=== PATIENT | male | born 1940 | race Caucasian/White ===

== ENCOUNTER 2016-10-16 15:16 | Inpatient (IN) | payer MEDICARE ==
[~2016-10-16] VITALS: Ht 172.7 cm; Wt 89.7 kg
[2016-10-16] VITALS (7 sets, daily range): BP systolic 145–179; BP diastolic 51–80; PULSE 78–83; RESP 16–20; O2SAT 95–97
[~2016-10-16 15:16] MED LIST: AMLO5TAB2 PO; ASPI81TA3 PO; CARV12.52 PO; CINN500C14 PO; LISI40TA PO; METF1000 PO; PUMP160C PO; SIMV40TA2 PO; VIT1TABL83 PO
--- NOTE | 2016-10-16 15:50 | ED.REPORT ---
HPI-General Illness Date of Service Oct 16, 2016 ED Provider: Mati Tran MD The patient is a 76 year old male with history of hyperlipidemia, hypertension, and diabetes mellitus type II, who presents to the emergency department by EMS for generalized weakness. The patient has had multiple ground level falls today. He believes he is falling because he is generally weak. His is concerned that she is not able to take care of him with all of this falling. He did not hit his head or lose consciousness. He denies shortness of breath, chest pain, palpitations, abdominal pain, nausea, vomiting, diarrhea, dysuria, hematuria, cough, fever, chills, focal weakness or numbness. Nursing Notes Stated Complaint: FALL Chief Complaint: General Complaint Nursing Notes Reviewed: Yes Allergies: Coded Allergies: No Known Allergies (Verified Allergy, Unknown, 04/01/14) Scheduled Aspirin (Aspirin) 325 Mg Tablet 650 MG PO DAILY Carvedilol (Carvedilol) 25 Mg Tablet 25 MG PO BID Cinnamon Bark (Cinnamon) 500 Mg Capsule 1,000 MG PO DAILY Fish Oil/Dha/Epa (Fish Oil 1,200 mg Fish Oil) 1 Each Capsule 1 EACH PO DAILY Hydrochlorothiazide (Hydrochlorothiazide) 25 Mg Tablet 25 MG PO QAM Lisinopril (Lisinopril) 40 Mg Tablet 60 MG PO QAM TAKE 40 MG + 20 MG = 60 MG TOTAL DAILY Metformin (Glucophage) 1,000 Mg Tablet 1,000 MG PO BIDWM Pumpkin Seed Oil/Saw [place] (Saw [place] 160 mg Softgel) 160 Mg Capsule 640 MG PO DAILY Simvastatin (Zocor) 40 Mg Tablet 40 MG PO HS Vit B Comp/C/FA/Iron/Vit E (Vitamin B Complex Tablet) 1 Each Tablet 1 EACH PO QAM General Time Seen by MD: 15:28 Chief Complaint Weakness, Other (falls) Hx Obtained From: Patient, Spouse, EMS Arrived By: Ambulance Sudden in Onset?: No Onset Occurred: More than a week ago... Symptom Duration: Since onset Severity: Current: No pain currently Severity: Maximum: No pain Recent Healthcare: No recent hospitalization Similar Sx Previous: No Past Medical History Past Medical History Hyperlipidemia Hypertension Diabetes mellitus type II Neuropathy Osteomyelitis of foot Past Surgical History S/p left toe partial amputation Tonsillectomy Family History noncontributory Smoking History Former Smoker Social History Drug Use: Denies drug use Other Social History: Good social support, , Local resident Ambulatory Status Independent Review of Systems Full Review of Systems Constitutional: Denies: Chills, Fever Respiratory: Denies: Non-productive cough, Shortness of breath Cardiovascular: Denies: Chest pain, Palpitations GI: Denies: Abdominal pain, Diarrhea, Nausea, Vomiting Male: Denies Dysuria, Denies Hematuria Neurologic: Reports: Weakness, Denies: Change LOC, Focal weakness, Numbness, Syncope Complete sys rev & neg: except as marked. Physical Exam Vital Signs Vital Signs Date Time Temp Pulse Resp B/P Pulse Ox O2 Delivery O2 Flow Rate FiO2 10/16/16 16:47 80 20 145/51 96 Room Air 10/16/16 15:31 37.2 78 19 167/53 96 Room Air Initial VS: Reviewed Extremities: Vascular intact, Neuro intact Skin: Warm, Dry, No cyanosis Psychiatric: Mood/affect normal, Behavior normal, Normal thought content General/Constitutional: Awake, Alert, No acute distress, Cooperative Head / Eyes: Atraumatic, Normocephalic, PERRL, EOMI ENT: Atraumatic, Airway patent, Mucous membranes moist No trauma to face or scalp. Neck: Atraumatic, Supple, Full range of motion, No swelling, Non-tender, No midline vertebral tend Respiratory / Chest: Atraumatic, Breath sounds NL, Breath sounds = bilat, No respiratory distress, No rales, No rhonchi, No wheezing, No stridor, No chest tenderness, No chest wall deformity Cardiovascular: Heart rate NL, Regular rhythm Heart Sounds / Murmur: Positive: Systolic murmur present.. (II/, heard best at the apex) Abdomen: Atraumatic, Soft, Non-tender, No guarding, No rebound, BS normoactive , No distention Back: No midline vertebral tend Upper Extremities Upper Extremity / MS: Atraumatic, Inspection NL, Full range of motion, No swelling, Non-tender, No erythema, No deformity, Neurologic intact, Vascular intact Lower Extremity / Pelvis / MS: Neurologic intact, Vascular intact Good DP and PT pulses. Amputation of left second toe. No evidence of cellulitis, skin is intact. There are superficial abrasions overlying his bilateral knees. Neurologic: Oriented X3, Speech NL, No motor deficits, No sensory deficits, CN II - XII intact No lateralizing neurologic deficits. No facial droop. No slurred speech. Interpretation & Diagnostics Lab Results Interpretation Result Diagram: 10/16/16 1600 10/16/16 1600 Test 10/16/16 16:00 10/16/16 16:20 White Blood Count 10.5th/mm3 (3.8-10.1) Red Blood Count 4.11mil/mm3 (4.40-5.80) Hemoglobin 13.3g/dL (13.8-17.2) Hematocrit 37.6% (41.0-50.0) Mean Corpuscular Volume 91.5fL (81-100) Mean Corpuscular Hemoglobin 32.4pg (27.0-35.0) Mean Corpuscular Hemoglobin Concent 35.4% (32.0-37.0) Red Cell Distribution Width 13.0% (12.3-15.4) Platelet Count 125bil/L (150-400) Neutrophils (%) (Auto) 80.7% (40-74) Lymphocytes (%) (Auto) 9.7% (14-46) Monocytes (%) (Auto) 9.0% (4-12) Eosinophils (%) (Auto) 0.2% (0-5) Basophils (%) (Auto) 0.1% (0-3) Sodium Level 135mEq/L (134-144) Potassium Level 5.2mEq/L (3.5-5.2) Chloride Level 99mEq/L (97-108) Carbon Dioxide Level 18mmol/L (18-29) Blood Urea Nitrogen 29mg/dL (8-27) Creatinine 1.47mg/dL (0.76-1.27) Estimat Glomerular Filtration Rate 50mL/min (>59) Glucose Level 200mg/dL (60-99) Calcium Level 10.0mg/dL (8.5-10.1) Magnesium Level 1.8mg/dL (1.6-2.6) Total Bilirubin 0.3mg/dL (0.0-1.2) Aspartate Amino Transf (AST/SGOT) 45U/L (0-50) Alanine Aminotransferase (ALT/SGPT) 23U/L (0-44) Alkaline Phosphatase 54U/L (25-160) Troponin T 0.036ug/L (0.0-0.011) Pro-B-Type Natriuretic Peptide 3382pg/mL (0-486) Total Protein 7.5g/dL (6.4-8.4) Albumin 4.1g/dL (3.4-5.0) Lipase 26U/L (13-60) Lactic Acid Level 1.7mmol/L (0.4-2.0) ECG Interpretation ECG Interpretation: Normal sinus rhythm with a rate of 80 bpm L[address] No acute ST segment changes No acute T wave abnormalities Inferior Q waves present When compared to prior EKG dated 08/20/2015 there are no significant changes Time: 15:58 Interpreted by: ED physician X-Ray Chest Interpretation Chest Xray Interpretation: IMPRESSION: No acute cardiopulmonary disease. Dictated by: Edith Davey M.D. on 10/16/2016 at 15:57 Interpretation / Wet Read by: Interpret - Radiologist CT Head Interpretation IMPRESSION: 1. No acute intracranial findings. 2. Ventriculomegaly, similar in extent to the study dated 08/20/15. Given the chronicity of this finding, this most likely represents central volume loss. However, normal pressure hydrocephalus could also be considered in the differential. 3. Extensive findings likely associated with chronic microvascular ischemic changes. Dictated by: Madyson Rodríguez M.D. on 10/16/2016 at 16:37 Study: Head CT no contrast Interpretation / Wet Read by: Interpret - Radiologist Re-Eval/Medical Decision Med Decision/Clinical Course The patient is a 76 year old male with history of hyperlipidemia, hypertension, and diabetes mellitus type II, who presents to the emergency department by EMS for generalized weakness. The patient has had multiple ground level falls today. He believes he is falling because he is generally weak. His is concerned that she is not able to take care of him with all of this falling. He did not hit his head or lose consciousness. He denies shortness of breath, chest pain, palpitations, abdominal pain, nausea, vomiting, diarrhea, dysuria, hematuria, cough, fever, chills, focal weakness or numbness. LABS: CBC borderline leukocytosis 10.5 not significantly changed from baseline, hct 37.6 stable, CMP: BUN of 29 which is up from prior of 13 2 months ago, creatinine of 1.47 which is up from 1.1 2 months ago, other than acute kidney injury CMP is unremarkable, lactic acid 1.7. Urinalysis pending. Head CT: stable ventriculomegaly most consistent with volume loss though could be related to normal pressure hydrocephalus. CXR: Obtained, reviewed and interpreted by myself shows no evidence of infiltrates, effusions or pneumothorax. Cardiac and mediastinal silhouette normal. No bony or soft tissue abnormalities. EKG obtained interpreted by myself as documented above. Patient presents with generalized weakness. I considered ACS, however has had no chest pain, EKG is not indicative of ACS, and while screening troponin is weakly positive I suspect that this may be related to the patient's underlying acute kidney injury. We will obtain serial troponins on admission. Also considered stroke, however head ct is negative, and no lateralizing neurologic symptoms. The patient is not hypovolemic, as has has no history of n/v/d, and orthostatics were negative. We do not suspect GIB in the absence of hematemesis or melana, negative history and normal hematocrit. Infection is unlikely as afebrile, nontoxic, CXR negative. Urinalysis is pending however he denies any urinary symptoms. Emergency Department the patient was treated with IV fluids and Zofran for nausea. I ordered physical therapy evaluation as well as social work consult for possible placement in a care facility as he is not safe at home at this time. Patient was discussed with admitting hospitalist and transferred for further management and workup. Source of Hx: Old records Consultation : Referral / Consult Name: Nicho Saenz DO Consulted With: Hospitalist Requested Call at: 17:11 Call Returned at: 17:19 Design Release Engineer: Will see patient, Agrees with eval, Agrees with plan, Accepts admit Counseled Regarding: Diagnosis, Lab results, Need for admission Discharge & Departure Primary Impression: Weakness Additional Impressions: Acute kidney injury Fall from ground level Elevated troponin Dehydration Disposition: ADMITTED TO HOSPITAL Discharge Condition All VS Reviewed: Yes Condition: Stable Referrals: Erin Kaye MD (PCP) Maris Attestation Portions of this note were transcribed by Kristen Cox. I, Dr. Tran personally performed the history, physical exam and medical decision-making; I reviewed and confirmed the accuracy of the information in the transcribed note. Signed by: Maris Verde, 10/16/2016 at 1730. copies to: Erin Kaye MD, Beck O MD Oct 16, 2016 15:50 Kenny,Kristen Bentley Oct 16, 2016 15:53
--- NOTE | 2016-10-16 15:59 | DRSVH ---
PROCEDURE: X-RAY CHEST ONE VIEW, PORTABLE ([id number]) INDICATIONS: cough TECHNIQUE: One view of the chest was acquired. COMPARISON: [facility], CR, XR CHEST 1VW (PORTABLE), 08/20/2015, 14:51. FINDINGS: Surgical changes and devices: None. Lungs and pleura: No pleural effusions or pneumothorax. Lungs are clear. Mediastinum: Mediastinal contours appear normal. Heart size is normal. Bones and chest wall: No suspicious bony lesions. Overlying soft tissues appear unremarkable. IMPRESSION: No acute cardiopulmonary disease. Dictated by: Edith Davey M.D. on 10/16/2016 at 15:57 Approved by: Edith Davey M.D. on 10/16/2016 at 15:58
[2016-10-16 16:09] LABS: BASOPHILS % (AUTO) 0.1 % (0-3); EOSINOPHILS % (AUTO) 0.2 % (0-5); Mean Corpuscular Hemoglobin 32.4 pg (27.0-35.0); Mean Corpuscular Volume 91.5 fL (81-100); NEUTROPHILS % (AUTO) 80.7 % (40-74); Platelet Count 125 bil/L (150-400)
[2016-10-16] MEDS ORDERED: 0.9% Sodium Chloride 1,000 ML IV ONE (16:10)
[2016-10-16 16:37] LABS: Magnesium 1.8 mg/dL (1.6-2.6)
--- NOTE | 2016-10-16 16:42 | DRSVH ---
PROCEDURE: CT BRAIN WITHOUT CONTRAST ([id number]) INDICATIONS: falls TECHNIQUE: Noncontrast 4.5 mm thick angled axial sections acquired from the foramen magnum to the vertex, with c oronal reformats. COMPARISON: [facility], CT, CT BRAIN WO CON, 08/20/2015, 15:18. FINDINGS: Image quality: Excellent. CSF spaces: Basal cisterns are patent. No extra-axial fluid collections. The ventricles markedly e nlarged, similar to the study dated 08/20/15 and are symmetric in size and shape. Brain: No intracranial bleeds or masses. There is cerebral volume loss for age, with resultant vent ricular and sulcal prominence. There are extensive periventricular and deep white matter chronic sma ll vessel ischemic changes. There is intracranial internal carotid artery atherosclerosis. Skull and face: Calvarium and visualized facial bones appear intact, without suspicious lesions. Sinuses: Visualized sinuses and mastoids are clear. IMPRESSION: 1. No acute intracranial findings. 2. Ventriculomegaly, similar in extent to the study dated 08/20/15. Given the chronicity of this findi ng, this most likely represents central volume loss. However, normal pressure hydrocephalus could als o be considered in the differential. 3. Extensive findings likely associated with chronic microvascular ischemic changes. Dictated by: Madyson Rodríguez M.D. on 10/16/2016 at 16:37 Approved by: Madyson Rodríguez M.D. on 10/16/2016 at 16:40
[2016-10-16 16:53] LABS: TROPONIN T 0.036 ug/L (0.0-0.011)
[2016-10-16] MEDS ORDERED: Alum-Mag Hydrox-Simeth 30 mL Suspension PO PRN ×2 (16:55→17:55)
[2016-10-16] MEDS ORDERED: Ondansetron 2 mg/mL 2 mL Inj IVPUSH PRN ×2 (16:55→17:55)
--- NOTE | 2016-10-16 17:22 | PCM.HPMED ---
Subjective Date of Service Oct 16, 2016 Primary Provider: Admitting Physician: Primary Care Physician: Erin Kaye MD Attending Physician: Admit Status: From the Emergency Department Chief Complaint: fall, weakness History of Present Illness: 75 yo M with hx of DM type 2, HTN, peripheral neuropathy, diabetic wound with osteomyelitis in past, who was brought in by EMS after called saying patient has fallen and is having a difficult time getting up. Pt reported some confusion since saturday with resolution thinking it was the weekday and ultimately coming in today with notable dereased alertness and weakness upon standing which led to fall. Patient has been falling since 03/2014, after his osteomyelitis/toe amputation surgery, but it was attributed to his surgery, and imbalance, however he has been falling more frequently now - similar presenting sx when admitted in 08/30 with similar falls/weakness that was attributed to his previous foot surgery. concerned regarding inability to care for him d/t his recurrent falls - denies LOC, sz sx, or head trauma. denies cp/sob/n/v/f/ diarrhea/urinary sx. no alc/illicit rx use PCP: Dr. Erin Kaye Review of Systems: complete ros unremarkable unless stated in HPI Allergies Coded Allergies: No Known Allergies (Verified Allergy, Unknown, 04/01/14) Home Medications Amlodipine (Amlodipine) 5 Mg Tablet 10 MG PO DAILY Aspirin Chew (Aspirin Chew) 81 Mg Chew 81 MG PO DAILY Carvedilol (Carvedilol) 12.5 Mg Tablet 12.5 MG PO BIDWM Cinnamon Bark (Cinnamon) 500 Mg Capsule 1,000 MG PO DAILY Lisinopril (Lisinopril) 40 Mg Tablet 40 MG PO DAILY Metformin (Glucophage) 1,000 Mg Tablet 1,000 MG PO BID Simvastatin (Zocor) 40 Mg Tablet 40 MG PO HS Vit B Comp/C/FA/Iron/Vit E (Vitamin B Complex Tablet) 1 Each Tablet 1 EACH PO DAILY Miscellaneous Medications Pumpkin Seed Oil/Saw [place] (Saw [place] 160 mg Softgel) 160 Mg Capsule 640 MG PO PMH Hyperlipidemia Hypertension Diabetes mellitus type II Neuropathy Osteomyelitis of foot Surgical History S/p left toe partial amputation Tonsillectomy Family History noncontributory Social History Hx Alcohol Use: No Hx Substance Use: No Smoking Status: Former Smoker Living Arrangement: with Family Exam Vital Signs Vital Sign - Last Date Time Temp Pulse Resp B/P Pulse Ox O2 Delivery O2 Flow Rate FiO2 10/16/16 16:47 80 20 145/51 96 Room Air 10/16/16 15:31 37.2 Exam Gen.: No acute distress, alert and oriented, pleasant HEENT: Normocephalic/atraumatic, pupils equal round react to light and accommodation,EOMI, Anicteric sclera, No mucosal ulcerations Neck: No JVD, lymphadenopathy, no thyromegaly Cardiovascular: No rubs clicks murmurs or gallops, regular rate Respiratory: Clear to auscultation bilaterally no wheezes rales or rhonchi, good historian effort GI: Soft, nontender to palpation no masses no hepatosplenomegaly noted no peritoneal signs or rebound tenderness. Extremities: No clubbing cyanosis or edema, pulses intact, noted L 2nd toe amputation, plantar ulcerations near great toes b/l, no discharge, dirty but chronic appearing -but noted abrasions on knee Neurologic, muscle strength 5 out of 5 in upper and lower extremities bilaterally, creatinine nerves II-12 grossly intact, DTRs 2+ at patellar and brachial radialis and bicipital, sensation intact Psych: Mood appropriate, affect appropriate, no tangential thought or speech Lab and Diagnostics Result Diagram: 10/16/16 1600 10/16/16 1600 X-Rays, CTs and MRIs CT head IMPRESSION: 1. No acute intracranial findings. 2. Ventriculomegaly, similar in extent to the study dated 08/20/15. Given the chronicity of this finding, this most likely represents central volume loss. However, normal pressure hydrocephalus could also be considered in the differential. 3. Extensive findings likely associated with chronic microvascular ischemic changes. CXR IMPRESSION: No acute cardiopulmonary disease. Dictated by: Edith Davey M.D. on 10/16/2016 at 15:57 12-lead ECG SR, early repol no acute ischemic changes - nl intervals Cardiac Echo Impressions Name: TRACY WILSON VStudy Date: 08/21/2015 Height: 68 in Hospital Exam Location: [facility] Weight: 199 lb Gender: Male BSA: 2.0 m2 : 1940 Age: 75 yrs BP: 168/78 mmHg Reason For Study: GENERALIZED WEAKNESS Ordering Physician: HOSPITALIST SV Performed By: Rishabh Pugh Referring Physician: Erin Kaye Interpretation Summary The left ventricle is mildly dilated. There is moderate concentric left ventricular hypertrophy. The ejection fraction is estimated to be 50-55%. There is posterolateral wall severe hypokinesis. There are no other obvious focal wall motion abnormalities. Assessment of diastolic parameters indicates a relaxation abnormality of the left ventricle, consistent with normal filling pressures. There is mild-moderate mitral regurgitation. The aortic valve is bicuspid. There is no hemodynamically significant valvular aortic stenosis. There is moderate aortic regurgitation. The ascending aorta is mildly enlarged. No other echocardiographic abnormalities seen. Assessment & Plan 75 M with hx of DM, HTN and HLP with Osteomyelitis s/p amputation of his left second toe who presents to the ER with recurrent falls and unable to care for pt at home Recurrent falls, possibly 2/2 to infection/UA pending vs L foot deformity from prior amputation sx -Unsure of what patients baseline, per he has been falling for the last couple yrs with similar admit in 08/30 -CT scan without e/o ICH -enc hydration, hold IVF given BNP -Follow up cultures, send for UA, and check Procalcitonin -order TSH -f/u UA -Get PT for evaluation -Will get ECHO for comparison given e/o WMA in 2016 Diabetic foot ulceration -wound care for conservative tx - chronic appearing but needing cleaning LIN -likely 2/2 to prerenal state, gentle IVF overnight -daily lab HTN urgency -Only takes Lisinopril -cont carvedilol -Will add Hydralazine PRN -stopped norvasc -Recheck in AM DM type 2 uncontrolled -Start Insulin SS -hypoglycemic protocol qACHS -Check A1c Pain Evaluation: Adequate Pain Control VTE Prophylaxis: Sub-Q Heparin (Unfractionated) Resuscitation Status: DNR/DNI:Do Not Resuscitate/Intubate Time spent 45 minutes spent with robert and Nicho Duran DO Oct 16, 2016 17:22
[2016-10-16] MEDS ORDERED: Polyethylene Glycol (PEG) 17 Gm Powder PO PRN (17:55)
[2016-10-16] MEDS ORDERED: Glucose 40% Oral Gel 15 Gm Tube PO PRN (18:05)
[2016-10-16] MEDS ORDERED: CARV25TA2 PO (18:16)
[2016-10-16] MEDS ORDERED: ASPI325T32 PO (18:16)
[2016-10-16] MEDS ORDERED: HYDR25TA4 PO (18:16)
[2016-10-16] MEDS ORDERED: FISH1CAP15 PO (18:16)
[2016-10-16] MEDS ORDERED: 0.9% Sodium Chloride 1,000 ML IV SCH (19:35)
[2016-10-16] MEDS: Insulin LISPRO 300 Unit/3 mL Inj SUBQ SCH (21:36)
[2016-10-17] VITALS (8 sets, daily range): BP systolic 169–185; BP diastolic 57–66; PULSE 58–72; RESP 16–20; O2SAT 96–97
[2016-10-17 01:50] LABS: APPEARANCE,URINE CLEAR (CLEAR,HAZY); COLOR,URINE STRAW (YELLOW); OCCULT BLOOD,URINE SMALL (NEGATIVE); UROBILINOGEN,URINE NORMAL (NORMAL)
--- NOTE | 2016-10-17 05:13 | NUR ---
/ HTN Pt states they have no issue with incontinence, however they have been having significant incontinence all night. Pt has been A&Ox3 and sleeping well, but needing attends changing regularly. Pt has also been hypertensive tonight, given mayito coreg and prn hydralazine w/ improvement.
[2016-10-17 06:09] LABS: BASOPHILS % (AUTO) 0.1 % (0-3); EOSINOPHILS % (AUTO) 0.9 % (0-5); MONOCYTES % (AUTO) 15.4 % (4-12); Mean Corpuscular Hemoglobin 31.8 pg (27.0-35.0); Mean Corpuscular Volume 93.2 fL (81-100); NEUTROPHILS % (AUTO) 62.7 % (40-74); Platelet Count 108 bil/L (150-400)
[2016-10-17 06:31] LABS: Magnesium 1.7 mg/dL (1.6-2.6)
[2016-10-17] MEDS ORDERED: Lisinopril 40 Tablet PO SCH (08:30)
[2016-10-17] MEDS: Insulin LISPRO 300 Unit/3 mL Inj SUBQ SCH ×4 (08:48→21:43)
[2016-10-17] MEDS: Heparin 5,000 Unit/mL Inj SUBQ SCH ×2 (08:49→16:49)
--- NOTE | 2016-10-17 09:16 | NUR ---
Case Management: BROWN and Medicare Part D info given and explained to patient at bedside at 9:05 am. No questions at this time. Signed original BROWN placed on hard chart, copy given to ptMAURO Pearce RN
[2016-10-17] MEDS ORDERED: Furosemide 10 mg/mL 10 mL Inj IVPUSH SCH (11:50)
--- NOTE | 2016-10-17 11:52 | PCM.PNMED ---
Subjective Date of Service Oct 17, 2016 Subjective No complaints overnight, awaiting echo this morning. Denies chest pain, shortness of breath or fever, consultation Dr. Bauer of podiatry today who has seen patient in the past Exam Vital Signs Vital Sign - Last Date Time Temp Pulse Resp B/P Pulse Ox O2 Delivery O2 Flow Rate FiO2 10/17/16 11:15 58 171/57 10/17/16 08:50 37.2 20 97 Room Air Intake and Output 10/16/16 10/16/16 10/17/16 Cumulative From/Thru 15:00 23:00 07:00 10/16/16 15:31 - 10/17/16 06:33 Intake Total 1000 ml 777 ml 1777 ml Output Total 300 ml 300 ml Balance 1000 ml 477 ml 1477 ml Intake IV Total 1000 ml 777 ml 1777 ml Output Urine Total 300 ml 300 ml # Voids 3 3 Exam Gen.: No acute distress, alert and oriented, pleasant HEENT: Normocephalic/atraumatic, pupils equal round react to light and accommodation,EOMI, Anicteric sclera, No mucosal ulcerations Neck: No JVD, lymphadenopathy, no thyromegaly Cardiovascular: No rubs clicks murmurs or gallops, regular rate Respiratory: Clear to auscultation bilaterally no wheezes rales or rhonchi, good historian effort GI: Soft, nontender to palpation no masses no hepatosplenomegaly noted no peritoneal signs or rebound tenderness. Extremities: No clubbing cyanosis or edema, pulses intact, noted L 2nd toe amputation, plantar ulcerations near great toes b/l, no discharge, dirty but chronic appearing -but noted abrasions on knee Neurologic, muscle strength 5 out of 5 in upper and lower extremities bilaterally, creatinine nerves II-12 grossly intact, DTRs 2+ at patellar and brachial radialis and bicipital, sensation intact Psych: Mood appropriate, affect appropriate, no tangential thought or speech IVs and Medications Medications Reviewed: Medications were reviewed in detail Lab and Diagnostics Result Diagram: 10/17/16 0550 10/17/16 0550 X-Rays, CTs and MRIs CT head IMPRESSION: 1. No acute intracranial findings. 2. Ventriculomegaly, similar in extent to the study dated 08/20/15. Given the chronicity of this finding, this most likely represents central volume loss. However, normal pressure hydrocephalus could also be considered in the differential. 3. Extensive findings likely associated with chronic microvascular ischemic changes. CXR IMPRESSION: No acute cardiopulmonary disease. Dictated by: Edith Davey M.D. on 10/16/2016 at 15:57 12-lead ECG SR, early repol no acute ischemic changes - nl intervals Cardiac Echo Impressions Name: TRACY WILSON VStudy Date: 08/21/2015 Height: 68 in Hospital Exam Location: [facility] Weight: 199 lb Gender: Male BSA: 2.0 m2 : 1940 Age: 75 yrs BP: 168/78 mmHg Reason For Study: GENERALIZED WEAKNESS Ordering Physician: HOSPITALIST [facility] Performed By: Rishabh Pugh Referring Physician: Erin Kaye Interpretation Summary The left ventricle is mildly dilated. There is moderate concentric left ventricular hypertrophy. The ejection fraction is estimated to be 50-55%. There is posterolateral wall severe hypokinesis. There are no other obvious focal wall motion abnormalities. Assessment of diastolic parameters indicates a relaxation abnormality of the left ventricle, consistent with normal filling pressures. There is mild-moderate mitral regurgitation. The aortic valve is bicuspid. There is no hemodynamically significant valvular aortic stenosis. There is moderate aortic regurgitation. The ascending aorta is mildly enlarged. No other echocardiographic abnormalities seen. Assessment & Plan 75 M with hx of DM, HTN and HLP with Osteomyelitis s/p amputation of his left second toe who presents to the ER with recurrent falls and unable to care for pt at home Recurrent falls, possibly 2/2 to possible acute CHF exacerbation, unknown systolic versus diastolic complicated by L foot deformity from prior amputation sx -CT scan without e/o ICH -Gentle IV fluid overnight without improvement in renal function, give Lasix dose IV today, check urine studies noted elevated BNP -TSH ordered -PT for evaluation today -Will get ECHO for comparison given e/o WMA in 2016, pending now -Daily weights Diabetic foot ulceration -wound care for conservative tx - chronic appearing but needing cleaning - Consult to podiatry today, Dr. BAUER to see patient 4/5 LIN -likely 2/2 to prerenal state, gentle IVF overnight, no improvement will check urine sodium and neurology including urea -daily lab HTN urgency -Only takes Lisinopril, may need to hold given acute kidney injury -cont carvedilol -add Hydralazine PRN, may need to schedule doses instead of lisinopril if acute kidney injury worsens -stopped norvasc -Recheck in AM DM type 2 uncontrolled -Start Insulin SS -hypoglycemic protocol qACHS -A1c 7.1 this admission Pain Evaluation: Adequate Pain Control VTE Prophylaxis: Sub-Q Heparin (Unfractionated) Resuscitation Status: DNR/DNI:Do Not Resuscitate/Intubate Time spent 35 minutes spent with evaluation and management Attending Statement Disposition: Likely discharge in 1-2 days pending echo, PT evaluation and improvement in kidney function Nicho Saenz DO Oct 17, 2016 11:52
--- NOTE | 2016-10-17 12:31 | NUR ---
Wound Care Wound evaluation order received, patient seen briefly at bedside. Presents with plantar ulcer which is open at right 1st met head and a severely hyperkeratotic lesion at left 1st met head. Patient has been a patient of Dr Ariane Duncan in past, contacted Dr Saenz to recommend consult with Dr Duncan. Dr Duncan to follow.
[2016-10-17] MEDS ORDERED: Furosemide 10 mg/mL 4 mL Inj IVPUSH ONE (12:48)
--- NOTE | 2016-10-17 14:24 | NUR ---
Social Work Note - Initial Assessment: D/A: See Initial Assessment. The Pt is a 76 y/o male that was admitted for weakness, LIN, GLF, and elevated troponin, Readmission Risk Score 5. The Pts PCP is MD Erin Kaye and his insurance is [employer] Medicare, no LTC or VA benefits reported. EMR reviewed, the Pt lives independently in a one story home with ramp in [place] with his . No Advanced Directive noted in EMR, Pt given copy. The Pt reports that he uses a FWW daily, continues to drive, and has an [facility] history in 2016. PT and WC evals pending. The Pt denies any needs at this time, SW to follow if needs arise. P: The Pt will likely discharge home via family POV when medically stable. PT and WC evals pending. The Pt denies any needs at this time, SW to follow if needs arise. MIHIR Shepard Director Underwriter Sales MIHIR Parekh Addendum: 10/17/16 at 1425 by ANGELINA SILVA Amended: Links added.
--- NOTE | 2016-10-17 18:22 | NUR ---
Mobility/wound care/elimination Pt able to sit up on edge of bed with 1 person max assist. Once standing, CGA with FWW for ambulation Dr. Duncan here and debrided bilat foot callous, dressing applied. left foot pressure wrapped with philip wrap d/t bleeding. To be removed at 1900 and covered with xeroform and mepitel. Left foot elevated while up in chair for meal. Pt uses urinal indep, but also incont wearing blue brief.
--- NOTE | 2016-10-17 21:27 | CONS ---
[address] [address] CONSULTATION REPORT PATIENT: TRACY WILSON V : 1940 MR#: [id number] ADMIT: 10/16/2016 JOB ID: [id number] DATE OF SERVICE: 10/17/2016 The patient is asked to be seen for thick calluses and possible wounds on both feet. The patient has history of diabetes and neuropathic ulcerations. He is status post amputation of the 2nd left toe secondary to osteomyelitis. He states that he stopped seeing a manager distribution due to the high cost of co-pays. He has been applying cream to his feet. He has been trimming his own toenails. He denies any pain or drainage from the feet. He has just gotten a new pair of diabetic shoes earlier in the year. PAST MEDICAL HISTORY: Significant for type 2 diabetes with peripheral neuropathy, hyperlipidemia, hypertension, history of osteomyelitis. He is status post left toe partial amputation and tonsillectomy. HOME MEDICATIONS: 1. Amlodipine 5 mg two tablets p.o. daily. 2. Aspirin 81 mg one tablet daily. 3. Carvedilol 12.5 mg p.o. b.i.d. 4. Cinnamon 500 mg two capsules p.o. daily. 5. Lisinopril 40 mg tablets p.o. daily. 6. Metformin 1000 mg p.o. b.i.d. 7. Zocor 40 mg p.o. h.s. 8. Vitamin B complex. 9. Saw palmetto 160 mg capsules as directed. ALLERGIES: No known drug allergies. FAMILY HISTORY: Noncontributory. SOCIAL HISTORY: No alcohol use or substance abuse. He is a former smoker. PHYSICAL EXAMINATION: The patient has thick hyperkeratosis with dried blood, plantar right hallux and plantar first metatarsophalangeal joint. There is an ulceration underneath both of the calluses. The ulceration on the right hallux measures 0.5 cm x 0.3 cm x 0.2 cm after debridement. There is no bone or tendon exposed. The granulation tissue is red and firm. There is a small amount of serous discharge. There is no pustular discharge or fluctuance noted. Ulceration, plantar first metatarsal plantar joint, measures 2 cm x 2.5 cm x 0.2 cm after debridement. The granulation tissue is red and firm. There is no bone or tendon exposed. There is odor. There is no pustular discharge or fluctuance noted. There is approximately 80% fibrin tissue in both ulcerations. The patient has decreased tone, temperature, and turgor of skin. Dorsalis pedis arteries are palpable but diminished. He has decreased digital hair growth. Hallux abductovalgus, left foot, with 3rd toe abutting the hallux. LABORATORY DATA: WBC 7.7, hemoglobin 11.7, hematocrit 34.3, platelets 108. Neutrophils 62.7. Sodium 141, potassium 4.2, chloride 102, carbon dioxide 21, BUN 28, creatinine 1.59, estimated GFR 45, glucose 157, albumin 3.7, ALT 18, AST 24. ASSESSMENT/PLAN: 1. Diabetic neuropathic ulcerations, bilateral feet, secondary to chyloma formation. It does not appear to be infected at this time. The hyperkeratosis and the nonviable and fibrotic tissue was sharply excised through skin edges through healthy subcutaneous tissue on both ulcerations. There was a minimal amount of bleeding. Hemostasis was achieved with pressure on the right and on the left with an Julián wrap. I instructed the nurse to remove the Julián wrap in half an hour and replace it with adhesive foam. The area was dressed using Xeroform, gauze, and paper tape on the right. Xeroform, 4 x 4 gauze, and an Julián wrap on the left. Recommend follow up at the [facility] once he is discharged from the hospital for continued local wound care and debridements as needed. 2. Diabetes with peripheral neuropathy. His blood sugars are in the past well controlled, however, he has severe neuropathy and it is at risk for recurrent diabetic neuropathic ulcerations. I discussed with the patient the importance of seeing a manager distribution such as myself on a regular basis to prevent reulceration as he is putting himself at risk for diabetic foot infections. I recommend he follow with a manager distribution every one month or two months depending on the rate of formation of callus buildup.
[2016-10-17 21:55] LABS: OSMOLALITY, URINE 411 mOs/kH2O (250-1200)
[2016-10-18] VITALS (9 sets, daily range): BP systolic 147–189; BP diastolic 56–67; PULSE 60–67; RESP 16–18; O2SAT 94–97
[2016-10-18] MEDS: Heparin 5,000 Unit/mL Inj SUBQ SCH ×3 (01:17→16:24)
--- NOTE | 2016-10-18 04:28 | NUR ---
HTN Pt A&O X3. denied pain or discomfort. Pt BP at bed time was 175/65. Administered PRN Q6hr PO hydralazine. BP 1hr post hydralazine is 179/66. pt denied headache, but he was diaphoretic. paged HS hospitalist. hospitalist recommended to continue to monitor. will continue to monitor.
[2016-10-18 06:20] LABS: BASOPHILS % (AUTO) 0.1 % (0-3); EOSINOPHILS % (AUTO) 2.3 % (0-5); MONOCYTES % (AUTO) 13.8 % (4-12); Mean Corpuscular Hemoglobin 31.9 pg (27.0-35.0); Mean Corpuscular Volume 92.8 fL (81-100); NEUTROPHILS % (AUTO) 56.2 % (40-74); Platelet Count 114 bil/L (150-400)
--- NOTE | 2016-10-18 08:10 | NUR ---
Case Management: IMM given and explained to patient at bedside at 0800. No questions. Original signed IMM placed on hard chart, copy given to ptMAURO Pearce RN
[2016-10-18] MEDS: Insulin LISPRO 300 Unit/3 mL Inj SUBQ SCH ×4 (08:28→21:58)
--- NOTE | 2016-10-18 11:29 | NUR ---
NITHYA NITHYA signed
--- NOTE | 2016-10-18 11:48 | DRSVH ---
[facility] [address] [facility] [place] [address] Echocardiogram Report Name: TRACY WILSON VStudy Date: 10/17/2016 Height: 68 in Hospital Exam Location: [facility] Weight: 198 lb Gender: Male BSA: 2.0 m2 : 1940 Age: 76 yrs BP: 175/66 mmHg Reason For Study: WEAKNESS, HISTORY OF WMA Ordering Physician: HOSPITALIST SURESHerformed By: Rishabh Pugh Referring Physician: Mayelin ALAS Interpretation Summary The left ventricle is borderline dilated. The ejection fraction is estimated to be 60-65%. Previously reported posterolateral hpokinesis has improved. The aortic valve is mildly calcified. A bicuspid aortic valve cannot be excluded. There is no hemodynamically significant valvular aortic stenosis. There is moderate aortic regurgitation. Procedure: A two-dimensional transthoracic echocardiogram with color flow and Doppler was performed. The study quality was technically adequate. Comparison is made with the echocardiogram of 08/21/15. The patient was in normal sinus rhythm during the exam. Left Ventricle: There is normal left ventricular wall thickness. The left ventricle is borderline dilated. The ejection fraction is estimated to be 60- 65%. Left ventricular wall motion is normal. Right Ventricle: The right ventricle is normal in size and function. Atria: The left atrium is mildly dilated. Right atrial size is normal. The interatrial septum is intact with no evidence for an atrial septal defect. Mitral Valve: The mitral valve is normal in structure and function. There is no mitral regurgitation. Aortic Valve: The aortic valve is mildly calcified. A bicuspid aortic valve cannot be excluded. There is no hemodynamically significant valvular aortic stenosis. There is moderate aortic regurgitation. Tricuspid Valve: The tricuspid valve is normal in structure and function. No tricuspid regurgitation. Pulmonary artery pressures cannot be estimated because of the lack of a measurable TR jet velocity. Pulmonic Valve: The pulmonic valve is normal in structure and function. There is trace pulmonic regurgitation. Great Vessels: The aortic root is normal size. The dimensions of the ascending aorta are normal. The pulmonary artery is normal size. The IVC is of normal diameter and collapses greater than 50% with a sniff. This suggests a low right atrial pressure of 3 mm Hg. Pericardium/ Pleura There is no pericardial effusion. There is no pleural effusion. MMode/2D Measurements & Calculations LVIDd: 5.8 cm RA long axis LVOT diam LVIDs: 3.7 cm LA A2 area: 23.1 cm FS: 35.8 % LA A4 area: 22.8 cm RA area AoV Opening EPSS: 0.51 cm LA length (vol): 5.5 cm IVSd: 0.97 cm LA vol: 80.5 ml : 14.2 cm Ao root diam LVPWd: 0.97 cm LA vol index RA vol : 40.7 ml asc Aorta RA Diam: 3.4 cm IVC diam: 1.9 cm : 20.0 mm2 LV muniz. diameter/BSA LV sys. diameter/BSA (cm/m^2): 2.8 (cm/m^2): 1.8 Doppler Measurements & Calculations Ao V2 max MV E max buddy MV E/A: 0.82 PA V2 max : 254.5 cm/sec : 79.8 cm/sec Med Peak E' Buddy : 103.0 cm/sec Ao max P.9 mmHg MV A max buddy PA mean PG Ao mean P.8 mmH.4 cm/sec E/E' med: 14.9 LVOT Max Buddy Lat Peak E' Buddy PA Accel Time : 121.3 cm/sec : 0.08 sec FRANCISCO(I,D): 2.1 cm E/E' lat: 7.3 sev ratio: 0.57 E/e' average AI P1/2t: 390.9 msec AI dec slope Pulm A Revs Dur : 336.0 cm/s2c MV A dur : 0.13 sec MV dec time: 0.19 secAo V2 mean LV V1 max PG PA V2 mean : 199.7 cm/sec : 70.7 cm/sec Ao V2 VTI: 52.1 cm LV V1 VTI FRANCISCO(V,D): 1.7 cm2 : 29.8 cm FRANCISCO indexed to BSA Pulm A Revs Dur - MV (cm^2/m^2): 1.0 A Dur: -0.03 msec Electronically signed by: Brayan Roberts on Reading Physician:10/17/2016 01:58 PM
--- NOTE | 2016-10-18 13:38 | PCM.PNMED ---
Subjective Date of Service Oct 18, 2016 Subjective Pt states he is feeling better today. He denies any chest pain, shortness of breath. He has not ambulated yet. No complaints or concerns at this time. Exam Vital Signs Vital Sign - Last Date Time Temp Pulse Resp B/P Pulse Ox O2 Delivery O2 Flow Rate FiO2 10/18/16 08:39 36.9 64 18 181/64 95 Room Air Intake and Output 10/17/16 10/17/16 10/18/16 Cumulative From/Thru 15:00 23:00 07:00 10/16/16 15:31 - 10/18/16 06:06 Intake Total 775 ml 610 ml 500 ml 3662 ml Output Total 475 ml 350 ml 1125 ml Balance 775 ml 135 ml 150 ml 2537 ml Intake Oral 610 ml 500 ml 1110 ml IV Total 775 ml 2552 ml Output Urine Total 475 ml 350 ml 1125 ml # Voids 3 3 9 # Bowel Movements 0 0 Exam GENERAL: NAD, Pt laying in bed comfortably HEENT: AT/NC, PERRLA, EOMI, Mucus Membranes are moist CARDIAC: RRR; No M/R/G PULM: CTAB; No wheezes or rhonchi bilaterally ABD: Soft, Nontender, Nondistended, Positive bowel sounds in all quadrants, No Hepatosplenomegaly appreciated EXT: No C/C/E; No calf tenderness bilaterally SKIN: Warm, Dry, [place], and Intact NEURO: Alert and oriented x3; Following all commands PSYCH: Normal mood and affect IVs and Medications Medications Reviewed: Medications were reviewed in detail Lab and Diagnostics Result Diagram: 10/18/16 0600 10/18/16 0600 X-Rays, CTs and MRIs CT head IMPRESSION: 1. No acute intracranial findings. 2. Ventriculomegaly, similar in extent to the study dated 08/20/15. Given the chronicity of this finding, this most likely represents central volume loss. However, normal pressure hydrocephalus could also be considered in the differential. 3. Extensive findings likely associated with chronic microvascular ischemic changes. CXR IMPRESSION: No acute cardiopulmonary disease. Dictated by: Edith Davey M.D. on 10/16/2016 at 15:57 12-lead ECG SR, early repol no acute ischemic changes - nl intervals Cardiac Echo Impressions Name: TRACY WILSON VStudy Date: 08/21/2015 Height: 68 in Hospital Exam Location: [facility] Weight: 199 lb Gender: Male BSA: 2.0 m2 : 1940 Age: 75 yrs BP: 168/78 mmHg Reason For Study: GENERALIZED WEAKNESS Ordering Physician: HOSPITALIST [facility] Performed By: Rishabh Pugh Referring Physician: Erin Kaye Interpretation Summary The left ventricle is mildly dilated. There is moderate concentric left ventricular hypertrophy. The ejection fraction is estimated to be 50-55%. There is posterolateral wall severe hypokinesis. There are no other obvious focal wall motion abnormalities. Assessment of diastolic parameters indicates a relaxation abnormality of the left ventricle, consistent with normal filling pressures. There is mild-moderate mitral regurgitation. The aortic valve is bicuspid. There is no hemodynamically significant valvular aortic stenosis. There is moderate aortic regurgitation. The ascending aorta is mildly enlarged. No other echocardiographic abnormalities seen. Assessment & Plan 75 M with hx of DM, HTN and HLP with Osteomyelitis s/p amputation of his left second toe who presents to the ER with recurrent falls and unable to care for pt at home. 1. Acute Kidney Injury - Etiology unclear - Worsening - Stop Lisinopril now - Nephrology consulted - Pt was initially given some IV fluid but his renal function did not seem to improve with this - Repeat BMP in AM - Pt is +2.5 liters since admission 2. Essential Hypertension - Hold AMY-I given #1 - Continue Coreg - Will start pt on Norvasc 10 mg daily now - Monitor BP closely 3. Diabetic Foot Ulceration - Pt to follow-up with wound care as an outpatient - Pt was seen by Podiatry in hospital, appreciate recommendations very much 4. Diabetes Mellitus, Type II - Continue SSI - Check FSBS q AC and HS 5. Recurrent Falls - PT to work with patient VTE Prophylaxis: Sub-Q Heparin (Unfractionated) Resuscitation Status: DNR/DNI:Do Not Resuscitate/Intubate Curt Ford MD Oct 18, 2016 13:38
[2016-10-18] MEDS: cloNIDine 0.1 mg Tablet PO SCH ×2 (16:24→21:43)
--- NOTE | 2016-10-18 16:30 | NUR ---
Blood pressure Pt bp been running high all shift. last bp 186/67. Pg Dr Ford. Took TO for clonidine 0.1 mg /po/q12. Will re check pressure in 1 hr.
--- NOTE | 2016-10-18 19:52 | DRSVH ---
PROCEDURE: US RENAL SONOGRAM INDICATIONS: CKD TECHNIQUE: Real-time scanning was performed of the kidneys and bladder, with image documentation. COMPARISON: None. FINDINGS: Kidneys: Right kidney measures 11.3 cm long; left kidney measures 10.9 cm long. Right renal cortica l thickness is 1.5 cm; left renal cortical thickness is 1.5 cm. Renal cortical echotexture is slight ly increased. No hydronephrosis. There is a cyst in the inferior pole of the left kidney measuring up to 1.2 cm. There are probable columns of Sunny bilaterally. Bladder: Pre-void bladder volume is 105 mL. Post-void residual is 16 mL. Pre-void images demonstra te no intraluminal masses or stones. On pre-void images, neither ureteral jets are noted with color Doppler interrogation. (Of note, ureteral jets may not be detectable in up to 25% of cases due to in sufficient differences in specific gravity between ureteral and bladder urine). Miscellaneous: No free pelvic fluid. IMPRESSION: 1. No evidence hydronephrosis. 2. Slightly increased renal cortical echogenicity suggesting medical renal disease. Dictated by: William Horvath M.D. on 10/18/2016 at 19:48 Approved by: William Horvath M.D. on 10/18/2016 at 19:51
--- NOTE | 2016-10-18 22:00 | NUR ---
Incontinence/Urgency Pt experiencing intermittent incontinence. Brief in place. Pt wanted to get up to the restroom. 1P assist with rising, steady with FWW to restroom. Needed help with brief and then dribbled onto floor before getting down to toilet. Using call light appropriately and accepting assistance with limitations.
[2016-10-19] VITALS (7 sets, daily range): BP systolic 145–166; BP diastolic 68–82; PULSE 57–82; RESP 12–17; O2SAT 94–99
--- NOTE | 2016-10-19 00:22 | CONS ---
[address] [address] CONSULTATION REPORT PATIENT: TRACY WILSON V : 1940 MR#: [id number] ADMIT: 10/16/2016 JOB ID: [id number] DATE OF SERVICE: 10/18/2016 HISTORY: The patient is a very pleasant 76-year-old, white male, who was admitted to [facility] for dehydration. He appears to have a history of chronic kidney disease and has had an increase in his creatinine following for lisinopril. Renal consultation is being sought for further evaluation of his renal insufficiency. The patient states that he has had an upper respiratory tract infection for approximately 1-1/2 weeks. He freely admits that he has not been eating properly and has been quite weakened condition. He has been quite compliant with his medications including a number of antihypertensives. He had several ground level falls prior to admission because of generalized weakness. He denies any head trauma or loss of consciousness. In the emergency department, his blood pressure was mildly elevated, and his BUN and creatinine were 28 and 1.59 respectively. In reviewing his history, he denies a history of any prior renal problems, and I do not see any old creatinines in his record. Since admission, he was re-started on lisinopril, and he had a slight increase in his serum creatinine to 1.73 today. Renal consultation was being sought for further evaluation of his renal function. He denies a history of any prior renal problems. There is no history of any prior prostate problems, hematuria, proteinuria, recurrent urinary tract infections, renal lithiasis, difficulty with urination, frequent use of nonsteroidal anti-inflammatories. He does have a longstanding history of type 2 diabetes for which he takes metformin. He states that his blood pressures have ranged usually in the mid 100 range. His last eye exam was within the last year, and he denies any history of any retinopathy or laser therapy. There is also a longstanding history of significant hypertension with probable hypertensive heart disease and hypertensive nephrosclerosis. He denies a history of any cardiac problems. There is a history of hyperlipidemia and a history of osteomyelitis of his foot and neuropathy due to diabetes. He denies a history of any recent severe headache, amaurosis fugax, scotomas, cough, chronic cough, wheezing, chest pain, shortness of breath, nausea, vomiting, or Echocardiogram showed a mildly dilated left ventricle with ejection fraction approximately 60% to 65% and a bicuspid aortic valve. There is no report of any diastolic dysfunction, but I would suspect this. IMPRESSION: 1. Mild acute kidney injury secondary to AMY inhibitor, which I feel is appropriate at this time. 2. Diabetic nephropathy. 3. Hypertension with hypertensive heart disease and hypertensive nephrosclerosis. 4. Metabolic syndrome. 5. Obstructive sleep apnea. RECOMMENDATION: I would like to continue the lisinopril at 20 mg a day. A small increase in the creatinine is acceptable. I would also like to get a urine protein/creatinine ratio, along with a serum protein electrophoresis, a renal ultrasound, uric acid level, and as his blood pressure is continuing to be elevated I would like to start him on chlorthalidone 25 mg. Once again, I would like to thank you for allowing me to participate in the care of this most pleasant and interesting patient. I will be following him closely with you.
[2016-10-19] MEDS: Heparin 5,000 Unit/mL Inj SUBQ SCH ×4 (00:41→23:42)
[2016-10-19 06:40] LABS: BASOPHILS % (AUTO) 0.1 % (0-3); EOSINOPHILS % (AUTO) 2.5 % (0-5); MONOCYTES % (AUTO) 10.3 % (4-12); Mean Corpuscular Hemoglobin 31.8 pg (27.0-35.0); Mean Corpuscular Volume 91.8 fL (81-100); NEUTROPHILS % (AUTO) 56.4 % (40-74); Platelet Count 115 bil/L (150-400)
[2016-10-19] MEDS: cloNIDine 0.1 mg Tablet PO SCH ×2 (07:36→20:22)
[2016-10-19] MEDS: Insulin LISPRO 300 Unit/3 mL Inj SUBQ SCH ×4 (07:37→22:17)
--- NOTE | 2016-10-19 09:11 | NUR ---
Bradycardia 0833 MD rai paged and notified that carvedilol held this am for bradycardia of 57, to notify RN if would still like med given Addendum: 10/19/16 at 1012 by GARLAND RICHARDSON RN agrees with holding of coreg this am, will continue to monitor Addendum: 10/19/16 at 1710 by GARLAND RICHARDSON RN Pt remains bradycardic this evening at 58. MD rai paged at 1708 and notified that coreg will be held.
--- NOTE | 2016-10-19 10:55 | PCM.PNMED ---
Subjective Date of Service Oct 19, 2016 Subjective Pt complains of a mild cough this morning. He otherwise has no concerns. He denies shortness of breath and chest pain. Exam Vital Signs Vital Sign - Last Date Time Temp Pulse Resp B/P Pulse Ox O2 Delivery O2 Flow Rate FiO2 10/19/16 07:30 36.9 57 12 166/68 94 Room Air Intake and Output 10/18/16 10/18/16 10/19/16 Cumulative From/Thru 15:00 23:00 07:00 10/16/16 15:31 - 10/19/16 06:20 Intake Total 240 ml 1350 ml 5252 ml Output Total 625 ml 220 ml 256 ml 2226 ml Balance -385 ml 1130 ml -256 ml 3026 ml Intake Oral 240 ml 1350 ml 2700 ml IV Total 2552 ml Output Urine Total 625 ml 220 ml 256 ml 2226 ml # Voids 1 1 5 16 # Bowel Movements 1 1 Exam GENERAL: NAD, Pt laying in bed comfortably HEENT: AT/NC, PERRLA, EOMI, Mucus Membranes are moist CARDIAC: RRR; No M/R/G PULM: CTAB; No wheezes or rhonchi bilaterally NEURO: Alert and oriented x3; Following all commands PSYCH: Normal mood and affect IVs and Medications Medications Reviewed: Medications were reviewed in detail Lab and Diagnostics Result Diagram: 10/19/1662410/19/16624 X-Rays, CTs and MRIs CT head IMPRESSION: 1. No acute intracranial findings. 2. Ventriculomegaly, similar in extent to the study dated 08/20/15. Given the chronicity of this finding, this most likely represents central volume loss. However, normal pressure hydrocephalus could also be considered in the differential. 3. Extensive findings likely associated with chronic microvascular ischemic changes. CXR IMPRESSION: No acute cardiopulmonary disease. Dictated by: Edith Davey M.D. on 10/16/2016 at 15:57 12-lead ECG SR, early repol no acute ischemic changes - nl intervals Cardiac Echo Impressions Name: TRACY WILSON VStudy Date: 08/21/2015 Height: 68 in Hospital Exam Location: [facility] Weight: 199 lb Gender: Male BSA: 2.0 m2 : 1940 Age: 75 yrs BP: 168/78 mmHg Reason For Study: GENERALIZED WEAKNESS Ordering Physician: HOSPITALIST [facility] Performed By: Rishabh Pugh Referring Physician: Erin Kaye Interpretation Summary The left ventricle is mildly dilated. There is moderate concentric left ventricular hypertrophy. The ejection fraction is estimated to be 50-55%. There is posterolateral wall severe hypokinesis. There are no other obvious focal wall motion abnormalities. Assessment of diastolic parameters indicates a relaxation abnormality of the left ventricle, consistent with normal filling pressures. There is mild-moderate mitral regurgitation. The aortic valve is bicuspid. There is no hemodynamically significant valvular aortic stenosis. There is moderate aortic regurgitation. The ascending aorta is mildly enlarged. No other echocardiographic abnormalities seen. Assessment & Plan 75 M with hx of DM, HTN and HLP with Osteomyelitis s/p amputation of his left second toe who presents to the ER with recurrent falls and unable to care for pt at home. 1. Acute Kidney Injury - Etiology unclear - Stable at present - Continue Lisinopril for now, per Nephrology - Nephrology on board and managing, appreciate assistance very much - Pt was initially given some IV fluid but his renal function did not seem to improve with this - Repeat BMP in AM - Renal US does not reveal any hydronephrosis 2. Essential Hypertension - Better controlled than previous - Continue Lisinopril as mentioned above - Continue Coreg - Chlorthalidone added by Nephrology 3. Diabetic Foot Ulceration - Pt to follow-up with wound care as an outpatient - Pt was seen by Podiatry in hospital, appreciate recommendations very much 4. Diabetes Mellitus, Type II - Continue SSI - Check FSBS q AC and HS 5. Recurrent Falls - PT to continue to work with patient VTE Prophylaxis: Sub-Q Heparin (Unfractionated) Resuscitation Status: DNR/DNI:Do Not Resuscitate/Intubate Curt Ford MD Oct 19, 2016 10:55
--- NOTE | 2016-10-19 11:31 | NUR ---
Social Work: Continued Discharge Planning Data & Assessment: supervisor fur floor worker met with the patient and notified him that PT is recommended home health PT upon discharge. Patient voiced understanding and was in agreement with HH. SW provided patient with HH choices. Patient chose [facility] and stated that he has maricarmen on service with [facility] in the past. SW will give [facility] access to the patient's chart. SW will continue to follow and assist patient throughout stay. Plan: Patient will discharge home with [facility]. SUNIL will continue to follow. Roxana Aguillon LMSW, JONG
--- NOTE | 2016-10-19 13:12 | NUR ---
Activity Pt able to ambulate 1/2 lap in gamez with walker with SBA. Up to chair for lunch with SBA.
--- NOTE | 2016-10-19 15:39 | PROG NOTE ---
[address] [address] PROGRESS NOTE PATIENT: TRACY WILSON V : 1940 MR#: [id number] ADMIT: 10/16/2016 JOB ID: [id number] DATE: 10/19/2016 SUBJECTIVE: The patient is here for followup of ulcerations, both feet. He denies any problems with the ulcerations at this time. He does not have any pain in his feet. He states he has been up and walking around without problems. PHYSICAL EXAMINATION: Blood pressure 151/72, pulse 59, respirations 14, temperature 36.5, pulse oximetry 99% on room air. 1. Lower extremity examination: Dressing is intact with a small amount of bloody drainage on the inner dressing. The ulceration measures 0.3 cm in diameter by 0.1 cm plantar right hallux. There is scant amount of serous discharge. There is no erythema, swelling, bone or tendon exposed. There is mild hyperkeratosis surrounding the wound margins. 2. Ulceration first metatarsal plantar joint measures 1.3 cm x 0.4 cm x 0.2 cm. There is approximately 80% fibrin tissue. The granulation tissue is pink and firm. There is no bone or tendon exposed. There is hyperkeratosis and skin maceration around the wound margins. There is no erythema or swelling noted. ASSESSMENT AND PLAN: 1. Diabetic neuropathic ulcerations are improving well. The nonviable and fibrotic tissue was selectively debrided from both ulcerations using a 15 blade. The ulcerations were redressed using Xeroform, 2x2 gauze, and tape. Recommend continuing doing the dressing changes every 48-72 hours. Once the patient is discharged, the patient is to followup at the [facility] with Dr. Duncan. 2. Type 2 diabetes, well controlled. I recommended that he followup with a lan analyst every 2-3 months.
--- NOTE | 2016-10-19 17:42 | PCM.PNNEPH ---
Subjective Date of Service Oct 19, 2016 Subjective The patient continues to do well. His blood pressures improved with some alteration in his antihypertensive medications. His intake and output for the last 24 hours 2090 N and 1195 out. He denies any headache, chest pain, shortness of breath, cough, wheezing, nausea or vomiting. This morning his sodium is 137, potassium is 3.9, chloride of 99, bicarbonate of 20 BUN and creatinine were 35 1.73. His renal ultrasound is remarkable for some mild increase in echogenicity throughout both kidneys. This consistent with chronic kidney disease. Exam Vital Signs Vital Sign - Last Date Time Temp Pulse Resp B/P Pulse Ox O2 Delivery O2 Flow Rate FiO2 10/19/16 17:17 36.5 59 12 151/68 98 Room Air Intake and Output 10/18/16 10/18/16 10/19/16 Cumulative From/Thru 15:00 23:00 07:00 10/16/16 15:31 - 10/19/16 06:20 Intake Total 240 ml 1350 ml 5252 ml Output Total 625 ml 220 ml 256 ml 2226 ml Balance -385 ml 1130 ml -256 ml 3026 ml Intake Oral 240 ml 1350 ml 2700 ml IV Total 2552 ml Output Urine Total 625 ml 220 ml 256 ml 2226 ml # Voids 1 1 5 16 # Bowel Movements 1 1 Exam Neck is supple without adenopathy, thyromegaly, or jugular venous distention. Lungs are clear to auscultation though somewhat diminished. Abdomen is soft without any tenderness rebound guarding masses or hepatosplenomegaly. Extremities do not show any evidence for clubbing cyanosis and his edema is visible clots. Lab and Diagnostics Result Diagram: 10/19/1662410/19/1625 X-Rays, CTs and MRIs CT head IMPRESSION: 1. No acute intracranial findings. 2. Ventriculomegaly, similar in extent to the study dated 08/20/15. Given the chronicity of this finding, this most likely represents central volume loss. However, normal pressure hydrocephalus could also be considered in the differential. 3. Extensive findings likely associated with chronic microvascular ischemic changes. CXR IMPRESSION: No acute cardiopulmonary disease. Dictated by: Edith Davey M.D. on 10/16/2016 at 15:57 12-lead ECG SR, early repol no acute ischemic changes - nl intervals Cardiac Echo Impressions Name: TRACY WILSON VStudy Date: 08/21/2015 Height: 68 in Hospital Exam Location: [facility] Weight: 199 lb Gender: Male BSA: 2.0 m2 : 1940 Age: 75 yrs BP: 168/78 mmHg Reason For Study: GENERALIZED WEAKNESS Ordering Physician: HOSPITALIST [facility] Performed By: Rishabh Pugh Referring Physician: Erin Kaye Interpretation Summary The left ventricle is mildly dilated. There is moderate concentric left ventricular hypertrophy. The ejection fraction is estimated to be 50-55%. There is posterolateral wall severe hypokinesis. There are no other obvious focal wall motion abnormalities. Assessment of diastolic parameters indicates a relaxation abnormality of the left ventricle, consistent with normal filling pressures. There is mild-moderate mitral regurgitation. The aortic valve is bicuspid. There is no hemodynamically significant valvular aortic stenosis. There is moderate aortic regurgitation. The ascending aorta is mildly enlarged. No other echocardiographic abnormalities seen. Plan Impression Impression #1 mild acute kidney injury number to diabetic nephropathy #3 hypertension with hypertensive heart disease and hypertensive nephrosclerosis # 4 metabolic syndrome and 5 obstructive sleep apnea. Recommendation #1 he has had a slight increase in his serum creatinine I feel this is acceptable in light of his significant diabetic kidney disease. Obviously we do need to follow this. In the long run he will blossom a decline in his renal function are supposed to not being on some type of RAAS blockade. Sebastian Wiseman DO Oct 19, 2016 17:42
[2016-10-20] VITALS (8 sets, daily range): BP systolic 137–165; BP diastolic 55–70; PULSE 54–68; RESP 14–17; O2SAT 95–99
--- NOTE | 2016-10-20 04:39 | NUR ---
Shift Note: Pt. Alert and able to voice needs and uses call light appropriately, denies pain or SOB, Able to ambulate to the BR with FWW, has episodes of intermittent incontinence , uses brief for hygiene and dignity. Res is diabetic, no s/s of hypo/hyperglycemia, Dressing to Bilateral foot C/D/I, IV to left ac intact and flushes well, qhourly rounds, Stable, call light within reach and all needs attended.
[2016-10-20 07:11] LABS: BASOPHILS % (AUTO) 0.1 % (0-3); EOSINOPHILS % (AUTO) 2.8 % (0-5); MONOCYTES % (AUTO) 9.2 % (4-12); Mean Corpuscular Hemoglobin 31.5 pg (27.0-35.0); Mean Corpuscular Volume 91.9 fL (81-100); NEUTROPHILS % (AUTO) 54.1 % (40-74); Platelet Count 125 bil/L (150-400)
[2016-10-20] MEDS: cloNIDine 0.1 mg Tablet PO SCH ×2 (08:33→20:12)
[2016-10-20] MEDS: Insulin LISPRO 300 Unit/3 mL Inj SUBQ SCH ×4 (08:33→21:57)
[2016-10-20] MEDS: Heparin 5,000 Unit/mL Inj SUBQ SCH ×2 (08:33→17:21)
--- NOTE | 2016-10-20 10:12 | PCM.PNMED ---
Subjective Date of Service Oct 20, 2016 Subjective Pt doing well this morning. He has no complaints or concerns at this time. Exam Vital Signs Vital Sign - Last Date Time Temp Pulse Resp B/P Pulse Ox O2 Delivery O2 Flow Rate FiO2 10/20/16 09:24 58 10/20/16 07:44 36.5 16 150/70 96 Room Air Intake and Output 10/19/16 10/19/16 10/20/16 Cumulative From/Thru 15:00 23:00 07:00 10/16/16 15:31 - 10/20/16 04:24 Intake Total 1100 ml 400 ml 6752 ml Output Total 650 ml 2876 ml Balance 1100 ml -250 ml 3876 ml Intake Oral 1100 ml 400 ml 4200 ml IV Total 2552 ml Output Urine Total 650 ml 2876 ml # Voids 5 21 # Bowel Movements 1 Exam GENERAL: NAD, Pt laying in bed comfortably HEENT: AT/NC, PERRLA, EOMI, Mucus Membranes are moist CARDIAC: RRR; No M/R/G PULM: CTAB; No wheezes or rhonchi bilaterally EXT: No C/C/E; No calf tenderness bilaterally NEURO: Alert and oriented x3; Following all commands PSYCH: Normal mood and affect IVs and Medications Medications Reviewed: Medications were reviewed in detail Lab and Diagnostics Result Diagram: 10/20/16 0647 10/20/16 0647 X-Rays, CTs and MRIs CT head IMPRESSION: 1. No acute intracranial findings. 2. Ventriculomegaly, similar in extent to the study dated 08/20/15. Given the chronicity of this finding, this most likely represents central volume loss. However, normal pressure hydrocephalus could also be considered in the differential. 3. Extensive findings likely associated with chronic microvascular ischemic changes. CXR IMPRESSION: No acute cardiopulmonary disease. Dictated by: Edith Davey M.D. on 10/16/2016 at 15:57 12-lead ECG SR, early repol no acute ischemic changes - nl intervals Cardiac Echo Impressions Name: TRACY WILSON VStudy Date: 08/21/2015 Height: 68 in Hospital Exam Location: [facility] Weight: 199 lb Gender: Male BSA: 2.0 m2 : 1940 Age: 75 yrs BP: 168/78 mmHg Reason For Study: GENERALIZED WEAKNESS Ordering Physician: HOSPITALIST [facility] Performed By: Rishabh Pugh Referring Physician: Erin Kaye Interpretation Summary The left ventricle is mildly dilated. There is moderate concentric left ventricular hypertrophy. The ejection fraction is estimated to be 50-55%. There is posterolateral wall severe hypokinesis. There are no other obvious focal wall motion abnormalities. Assessment of diastolic parameters indicates a relaxation abnormality of the left ventricle, consistent with normal filling pressures. There is mild-moderate mitral regurgitation. The aortic valve is bicuspid. There is no hemodynamically significant valvular aortic stenosis. There is moderate aortic regurgitation. The ascending aorta is mildly enlarged. No other echocardiographic abnormalities seen. Assessment & Plan 75 M with hx of DM, HTN and HLP with Osteomyelitis s/p amputation of his left second toe who presents to the ER with recurrent falls and unable to care for pt at home. 1. Acute Kidney Injury - Improving - Continue Lisinopril for now, per Nephrology - Nephrology on board and managing, appreciate assistance very much - IV fluids have been discontinued by Nephrology - Push PO fluids today - Repeat BMP in AM - Renal US does not reveal any hydronephrosis 2. Essential Hypertension - Better controlled than previous - Continue Lisinopril as mentioned above - Continue Coreg - Continue Chlorthalidone 3. Diabetic Foot Ulceration - Pt to follow-up with wound care as an outpatient - Pt was seen by Podiatry in hospital, appreciate recommendations very much 4. Diabetes Mellitus, Type II - Continue SSI - Check FSBS q AC and HS 5. Recurrent Falls - PT to continue to work with patient 6. Disposition - Anticipate discharge to home in AM VTE Prophylaxis: Sub-Q Heparin (Unfractionated) Resuscitation Status: DNR/DNI:Do Not Resuscitate/Intubate Curt Ford MD Oct 20, 2016 10:12
--- NOTE | 2016-10-20 11:00 | NUR ---
No Plan for Discharge Dr. Ford was not present at morning rounds, but patient stated Dr. Ford did come see them at bedside and stated they will remain another night.
--- NOTE | 2016-10-20 12:04 | PCM.PNNEPH ---
Subjective Date of Service Oct 20, 2016 Subjective Patient is continuing to improve. His renal function is back to his baseline about 1.56. The patient offers no new complaints and states that he is feeling well denying any chest pain, shortness of breath, cough or wheezing. His intake and output for the last 3 24 hours shows 3476 in and 6200 out. His systolic blood pressures been ranging between 100 120 range. This is mildly elevated at 9.1. Exam Vital Signs Vital Sign - Last Date Time Temp Pulse Resp B/P Pulse Ox O2 Delivery O2 Flow Rate FiO2 10/20/16 09:24 58 10/20/16 07:44 36.5 16 150/70 96 Room Air Intake and Output 10/19/16 10/19/16 10/20/16 Cumulative From/Thru 15:00 23:00 07:00 10/16/16 15:31 - 10/20/16 04:24 Intake Total 1100 ml 400 ml 6752 ml Output Total 650 ml 2876 ml Balance 1100 ml -250 ml 3876 ml Intake Oral 1100 ml 400 ml 4200 ml IV Total 2552 ml Output Urine Total 650 ml 2876 ml # Voids 5 21 # Bowel Movements 1 Exam Neck is supple without adenopathy thyromegaly or jugular venous distention. Lungs are clear to auscultation. Heart is regular and rhythmical with a soft systolic murmur. Abdomen is soft without any tenderness rebound guarding masses or hepatosplenomegaly. Extremities did not show any evidence of any clubbing cyanosis or edema. Skin turgor is good and there is no evidence of any rashes. Lab and Diagnostics Result Diagram: 10/20/16 0647 10/20/16 0647 X-Rays, CTs and MRIs CT head IMPRESSION: 1. No acute intracranial findings. 2. Ventriculomegaly, similar in extent to the study dated 08/20/15. Given the chronicity of this finding, this most likely represents central volume loss. However, normal pressure hydrocephalus could also be considered in the differential. 3. Extensive findings likely associated with chronic microvascular ischemic changes. CXR IMPRESSION: No acute cardiopulmonary disease. Dictated by: Edith Davey M.D. on 10/16/2016 at 15:57 12-lead ECG SR, early repol no acute ischemic changes - nl intervals Cardiac Echo Impressions Name: TRACY WILSON VStudy Date: 08/21/2015 Height: 68 in Hospital Exam Location: [facility] Weight: 199 lb Gender: Male BSA: 2.0 m2 : 1940 Age: 75 yrs BP: 168/78 mmHg Reason For Study: GENERALIZED WEAKNESS Ordering Physician: HOSPITALIST [facility] Performed By: Rishabh Pugh Referring Physician: Erin Kaye Interpretation Summary The left ventricle is mildly dilated. There is moderate concentric left ventricular hypertrophy. The ejection fraction is estimated to be 50-55%. There is posterolateral wall severe hypokinesis. There are no other obvious focal wall motion abnormalities. Assessment of diastolic parameters indicates a relaxation abnormality of the left ventricle, consistent with normal filling pressures. There is mild-moderate mitral regurgitation. The aortic valve is bicuspid. There is no hemodynamically significant valvular aortic stenosis. There is moderate aortic regurgitation. The ascending aorta is mildly enlarged. No other echocardiographic abnormalities seen. Plan Impression Impression #1 stage III chronic kidney disease #2 transient acute kidney injury which is resolved #3 diabetic nephropathy #4 hypertension with hypertensive nephrosclerosis #5 metabolic syndrome #6 obstructive sleep apnea Recommendations #1 from my point of view he will be discharged today as his renal function has returned to normal. I would like to see him in my office in approximately one month. Sebastian Wiseman DO Oct 20, 2016 12:04
[2016-10-21] MEDS: Heparin 5,000 Unit/mL Inj SUBQ SCH ×2 (00:04→07:44)
[2016-10-21 02:00] VITALS: BP 168/66; PULSE 60; RESP 16; O2SAT 97
--- NOTE | 2016-10-21 05:14 | NUR ---
Shift note Pt. denies any discomfort, uses call light appropriately and all needs attended.
[2016-10-21 05:55] VITALS: BP 157/70; PULSE 61; RESP 16; O2SAT 98
[2016-10-21 06:20] VITALS: PULSE 59
[2016-10-21 07:27] LABS: BASOPHILS % (AUTO) 0.1 % (0-3); EOSINOPHILS % (AUTO) 3.4 % (0-5); MONOCYTES % (AUTO) 8.8 % (4-12); Mean Corpuscular Hemoglobin 32.4 pg (27.0-35.0); Mean Corpuscular Volume 90.5 fL (81-100); NEUTROPHILS % (AUTO) 55.2 % (40-74); Platelet Count 128 bil/L (150-400)
[2016-10-21 07:32] VITALS: BP 148/54; PULSE 55; RESP 12; O2SAT 98
[2016-10-21] MEDS: cloNIDine 0.1 mg Tablet PO SCH (07:43)
[2016-10-21] MEDS: Insulin LISPRO 300 Unit/3 mL Inj SUBQ SCH ×2 (07:44→12:11)
[2016-10-21] MEDS ORDERED: LISI-610 PO (08:05)
[2016-10-21] MEDS ORDERED: HYG25 PO (08:05)
[2016-10-21] MEDS ORDERED: ASPI81TA3 PO (08:05)
[2016-10-21] MEDS ORDERED: AMLO5TAB2 PO (08:05)
[2016-10-21] MEDS ORDERED: ATOR20TA65 PO (08:05)
[2016-10-21] MEDS ORDERED: CLON0.1T14 PO (08:05)
--- NOTE | 2016-10-21 08:06 | PCM.DIMED ---
Discharge Instructions Date of Service Oct 21, 2016 Dates of Hospitalization Oct 16, 2016 at 17:27 Discharge Diagnosis Discharge Diagnosis 1. LIN on CKD Stage III, Resolving 2. Essential Hypertension 3. Diabetes Mellitus Type II 4. Hyperlipidemia 5. Obesity Diet Heart Healthy, Diabetic, Renal Diet Activity No restrictions Call your provider Fever or Chills, Shortness of breath, Bleeding, Chest pain, Vomitting, Excessive diarrhea, Weakness (unilateral) Patient Instructions Follow-up with PCP in: 1 week Provider: Sebastian Wiseman DO Follow-up in: 4 weeks (Pt to call for an appointment.) Curt Ford MD Oct 21, 2016 08:06
[2016-10-21 08:56] VITALS: PULSE 60
--- NOTE | 2016-10-21 09:30 | NUR ---
TERESA KAPLAN notified that coreg held this am due to SB 55. Asymptomatic. ok with med hold.
--- NOTE | 2016-10-21 10:29 | PCM.DC.MED ---
Discharge Summary Date of Service Oct 21, 2016 Dates of Hospitalization Date of Hospital Admission Oct 16, 2016 at 17:27 Date of Discharge: Oct 21, 2016 Providers: Admitting Physician: Nicho Saenz DO Primary Care Physician: Erin Kaye MD Attending Physician: Nicho Saenz DO Diagnosis at Time of Discharge Diagnosis at Time of Discharge 1. LIN on CKD Stage III, Resolving 2. Essential Hypertension 3. Diabetes Mellitus Type II 4. Hyperlipidemia 5. Obesity Consultations 1. Nephrology Procedures XRay, CTs & MRIs CT head IMPRESSION: 1. No acute intracranial findings. 2. Ventriculomegaly, similar in extent to the study dated 08/20/15. Given the chronicity of this finding, this most likely represents central volume loss. However, normal pressure hydrocephalus could also be considered in the differential. 3. Extensive findings likely associated with chronic microvascular ischemic changes. CXR IMPRESSION: No acute cardiopulmonary disease. Dictated by: Edith Davey M.D. on 10/16/2016 at 15:57 ECG 12 Lead SR, early repol no acute ischemic changes - nl intervals Cardiac Echo Impression Name: TRACY WILSON VStudy Date: 08/21/2015 Height: 68 in Hospital Exam Location: [facility] Weight: 199 lb Gender: Male BSA: 2.0 m2 : 1940 Age: 75 yrs BP: 168/78 mmHg Reason For Study: GENERALIZED WEAKNESS Ordering Physician: HOSPITALIST [facility] Performed By: Rishabh Pugh Referring Physician: Erin Kaye Interpretation Summary The left ventricle is mildly dilated. There is moderate concentric left ventricular hypertrophy. The ejection fraction is estimated to be 50-55%. There is posterolateral wall severe hypokinesis. There are no other obvious focal wall motion abnormalities. Assessment of diastolic parameters indicates a relaxation abnormality of the left ventricle, consistent with normal filling pressures. There is mild-moderate mitral regurgitation. The aortic valve is bicuspid. There is no hemodynamically significant valvular aortic stenosis. There is moderate aortic regurgitation. The ascending aorta is mildly enlarged. No other echocardiographic abnormalities seen. Brief History 75 yo M with hx of DM type 2, HTN, peripheral neuropathy, diabetic wound with osteomyelitis in past, who was brought in by EMS after called saying patient has fallen and is having a difficult time getting up. Pt reported some confusion since saturday with resolution thinking it was the weekday and ultimately coming in today with notable dereased alertness and weakness upon standing which led to fall. Patient has been falling since 03/2014, after his osteomyelitis/toe amputation surgery, but it was attributed to his surgery, and imbalance, however he has been falling more frequently now - similar presenting sx when admitted in 08/30 with similar falls/weakness that was attributed to his previous foot surgery. concerned regarding inability to care for him d/t his recurrent falls - denies LOC, sz sx, or head trauma. denies cp/sob/n/v/f/ diarrhea/urinary sx. no alc/illicit rx use PCP: Dr. Erin Kaye [facility] Course 75 M with hx of DM, HTN and HLP with Osteomyelitis s/p amputation of his left second toe who presents to the ER with recurrent falls and unable to care for pt at home. 1. Acute Kidney Injury on CKD Stage III - Improving - Continue Lisinopril for now, per Nephrology - Nephrology on board and managing, appreciate assistance very much - IV fluids have been discontinued by Nephrology - Push PO fluids - Renal US does not reveal any hydronephrosis - Pt to follow-up with Nephrology in 1 month post discharge, pt to call for an appointment 2. Essential Hypertension - Better controlled than previous - Continue Lisinopril as mentioned above - Continue Coreg - Continue Chlorthalidone - Continue Clonidine 3. Diabetic Foot Ulceration - Pt to follow-up with wound care as an outpatient - Pt was seen by Podiatry in hospital, appreciate recommendations very much 4. Diabetes Mellitus, Type II - Continue home medications 5. Disposition - Pt is discharged to home in good/stable condition Exam Vital Signs (Last) Date Time Temp Pulse Resp B/P Pulse Ox O2 Delivery O2 Flow Rate FiO2 10/21/16 08:56 60 10/21/16 07:32 12 148/54 98 Room Air 10/21/16 05:55 36.8 Exam GENERAL: NAD, Pt laying in bed comfortably HEENT: AT/NC, PERRLA, EOMI, Mucus Membranes are moist CARDIAC: RRR; No M/R/G PULM: CTAB; No wheezes or rhonchi bilaterally NEURO: Alert and oriented x3; Following all commands PSYCH: Normal mood and affect Test 10/16/16 16:00 10/16/16 16:20 10/17/16 01:30 10/17/16 05:50 Hemoglobin A1c 7.1% (4.8-5.6) Pro-B-Type Natriuretic Peptide 3382pg/mL (0-486) Lipase 26U/L (13-60) Lactic Acid Level 1.7mmol/L (0.4-2.0) Urine Color Straw (YELLOW) Urine Appearance Clear (CLEAR,HAZY) Urine pH 5.0 (5.0-8.0) Urine Specific [place] 1.025 (1.003-1.035) Urine Protein 100mg/dL (NEG,TRACE) Urine Glucose (UA) 250mg/dL (NEGATIVE) Urine Ketones Negativemg/dL (NEGATIVE) Urine Occult Blood Small (NEGATIVE) Urine Nitrite Negative (NEGATIVE) Urine Bilirubin Negative (NEGATIVE) Urine Urobilinogen Normalmg/dL (NORMAL) Urine Leukocyte Esterase Negative (NEGATIVE) Urine RBC 0-2/hpf (0-2) Urine WBC 0-5/hpf (0-5) Urine Epithelial Cells Occasional/hpf (NONE-MOD) Urine Crystals None seen (NONE SEEN) Urine Bacteria Few/hpf (NONE-FEW) Urine Hyaline Casts None/lpf (NONE) Urine Granular Casts None seen (NONE SEEN) Urine Waxy Casts None seen (NONE SEEN) Urine Red Blood Cell Casts None seen (NONE SEEN) Urine White Blood Cell Casts None seen (NONE SEEN) Urine Mucus None seen (None Seen) Urine Trichomonas None seen (NONE SEEN) Urine Yeast None (NONE SEEN) Urinalysis Comment None Urine Culture Reflexed Not indicated Magnesium Level 1.7mg/dL (1.6-2.6) Triglycerides Level 351mg/dL (0-149) Cholesterol Level 138mg/dL (100-199) LDL Cholesterol, Calculated 29.800mg/dL (0-99) VLDL Cholesterol 70.200mg/dL HDL Cholesterol 38mg/dL (>39) Cholesterol/HDL Ratio 3.63 (0.0-4.4) Test 10/17/16 21:27 10/18/16 22:15 10/19/16 06:25 10/19/16 14:00 Urine Osmolality 411mOs/kH2O (250-1200) Urine Random Sodium 100mEq/L Urine Urea Nitrogen 366mg/dL (Not Estab.) Troponin T 0.012ug/L (0.0-0.011) Total Bilirubin 0.3mg/dL (0.0-1.2) Aspartate Amino Transf (AST/SGOT) 18U/L (0-50) Alanine Aminotransferase (ALT/SGPT) 18U/L (0-44) Alkaline Phosphatase 52U/L (25-160) Total Protein 5.9g/dL (6.4-8.4) Prostate Specific Antigen 9.1ng/mL (0.0-4.0) Free Prostate Specific Antigen 3.07ng/mL (N/A) Percent Free Prostate Specific Ag 33.7% (.) Urine Random Creatinine 123mg/dL (22-328) Urine Random Total Protein 45mg/dL (0-15) Urine Protein/Creatinine Ratio 0.37 Test 10/21/16 06:33 White Blood Count 8.0th/mm3 (3.8-10.1) Red Blood Count 3.80mil/mm3 (4.40-5.80) Hemoglobin 12.3g/dL (13.8-17.2) Hematocrit 34.4% (41.0-50.0) Mean Corpuscular Volume 90.5fL (81-100) Mean Corpuscular Hemoglobin 32.4pg (27.0-35.0) Mean Corpuscular Hemoglobin Concent 35.8% (32.0-37.0) Red Cell Distribution Width 12.3% (12.3-15.4) Platelet Count 128bil/L (150-400) Neutrophils (%) (Auto) 55.2% (40-74) Lymphocytes (%) (Auto) 32.1% (14-46) Monocytes (%) (Auto) 8.8% (4-12) Eosinophils (%) (Auto) 3.4% (0-5) Basophils (%) (Auto) 0.1% (0-3) Sodium Level 136mEq/L (134-144) Potassium Level 4.5mEq/L (3.5-5.2) Chloride Level 98mEq/L (97-108) Carbon Dioxide Level 23mmol/L (18-29) Blood Urea Nitrogen 37mg/dL (8-27) Creatinine 1.56mg/dL (0.76-1.27) Estimat Glomerular Filtration Rate 46mL/min (>59) Glucose Level 224mg/dL (60-99) Calcium Level 9.3mg/dL (8.5-10.1) Discharge Medications Discharge Medications Amlodipine (Amlodipine) 5 Mg Tablet 5 MG PO DAILY Prescribed by: ANITHA CORONADO MD Aspirin Chew (Aspirin Chew) 81 Mg Chew 81 MG PO DAILY Prescribed by: ANITHA CORONADO MD Atorvastatin Calcium (Atorvastatin Calcium) 20 Mg Tablet 20 MG PO HS Prescribed by: ANITHA CORONADO MD Carvedilol (Carvedilol) 25 Mg Tablet 25 MG PO BID (Reported) Chlorthalidone (Chlorthalidone) 25 Mg Tablet 25 MG PO DAILY Prescribed by: ANITHA CORONADO MD Cinnamon Bark (Cinnamon) 500 Mg Capsule 1,000 MG PO DAILY Prescribed by: FRANCIS GALICIA MD Clonidine (Catapres) 0.1 Mg Tablet 0.1 MG PO BID Prescribed by: ANITHA CORONADO MD Fish Oil/Dha/Epa (Fish Oil 1,200 mg Fish Oil) 1 Each Capsule 1 EACH PO DAILY ( Reported) Lisinopril (Zestril) 10 Mg Tablet 10 MG PO DAILY Prescribed by: ANITHA CORONADO MD Metformin (Glucophage) 1,000 Mg Tablet 1,000 MG PO BIDWM (Reported) Pumpkin Seed Oil/[place] (Saw [place] 160 mg Softgel) 160 Mg Capsule 640 MG PO DAILY (Reported) Simvastatin (Zocor) 40 Mg Tablet 40 MG PO HS Prescribed by: Ivis MILLS MD Vit B Comp/C/FA/Iron/Vit E (Vitamin B Complex Tablet) 1 Each Tablet 1 EACH PO QAM (Reported) Followup Plan Discharge Diet: Heart Healthy, Diabetic, Renal Diet Discharge Activity: No restrictions Follow-up with PCP in: 1 week Provider: Sebastian Wiseman DO Follow-up in: 4 weeks (Pt to call for an appointment.) Time spent 33 minutes Anitha Coronado MD Oct 21, 2016 10:29
--- NOTE | 2016-10-21 11:38 | NUR ---
NITHYA NITHYA signed
--- NOTE | 2016-10-21 13:25 | NUR ---
Discharge Pt dc'd in WC with and RN at 1325, stable and w/o complaints. All discharge instructions and new medications reviewed. Reinforced diabetic education and need to follow up with nephrology and wound care/podiatry. IV dc'd w/o complication. All belongings with patient.
== END 2016-10-21 13:20 | disposition home or self-care (01) | DRG 674 ==
LOC: EDBD 15:16 → EDUNIT# 15:16 → SED 15:16 → INTOOBSV 17:27 → MOC 17:27 → OBSVTOIN 17:27 → MOC 17:41
PROVIDERS: ADMIT Internal Medicine; ATTEND Internal Medicine
PROC: 0JBQ0ZZ Excision of Right Foot Subcutaneous Tissue and Fascia, Open Approach (ICD-10-PCS; principal; 2016-10-17)
DX: N17.9 Acute kidney failure, unspecified (principal); I50.32 Chronic diastolic (congestive) heart failure; E11.621 Type 2 diabetes mellitus with foot ulcer; L97.509 Non-pressure chronic ulcer of other part of unspecified foot with unspecified severity; I13.10 Hypertensive heart and chronic kidney disease without heart failure, with stage 1 through stage 4 chronic kidney disease, or unspecified chronic kidney disease; I16.0 Hypertensive urgency; E11.40 Type 2 diabetes mellitus with diabetic neuropathy, unspecified; N18.3 Chronic kidney disease, stage 3 (moderate); E78.5 Hyperlipidemia, unspecified; S80.212A Abrasion, left knee, initial encounter; S80.211A Abrasion, right knee, initial encounter; W01.0XXA Fall on same level from slipping, tripping and stumbling without subsequent striking against object, initial encounter; E86.0 Dehydration; E11.65 Type 2 diabetes mellitus with hyperglycemia; E88.81 Metabolic syndrome and other insulin resistance; R29.6 Repeated falls; G47.33 Obstructive sleep apnea (adult) (pediatric); Z66 Do not resuscitate; Z91.81 History of falling; Y92.009 Unspecified place in unspecified non-institutional (private) residence as the place of occurrence of the external cause; Z87.891 Personal history of nicotine dependence; Z89.422 Acquired absence of other left toe(s); Z79.82 Long term (current) use of aspirin